=== PATIENT | female | born 1950 | race Caucasian/White ===

== ENCOUNTER 2020-05-02 08:55 | Outpatient (CLI) | payer MEDICARE, SELFPAY ==
--- NOTE | ~2020-05-02 | MM_ITS ---
EXAMINATION: MM screening [facility] BI w whitney HISTORY: Screening mammogram TECHNIQUE: Craniocaudal and mediolateral oblique 3-D tomosynthesis images were obtained and synthetic 2-D images were generated. CAD analysis was submitted and interpreted. COMPARISON: Comparison to multiple prior studies sequentially, with oldest reviewed study dated 06/2013. BREAST PARENCHYMAL COMPOSITION: The breasts are heterogeneously dense, which may obscure small masses . FINDINGS: There is a new focal asymmetry in the upper outer quadrant of the left breast. The right br east is stable without evidence for malignancy. IMPRESSION: 1. New focal left breast asymmetry, upper outer quadrant. 2. Additional mammographic views and possible breast ultrasound are recommended. BI-RADS Category 0: Incomplete: Needs additional imaging evaluation. Reviewed, dictated and finalized at location A. IMPRESSION: 1. New focal left breast asymmetry, upper outer quadrant. 2. Additional mammographic views and possible breast ultrasound are recommended . BI-RADS Category 0: Incomplete: Needs additional imaging evaluation.
--- NOTE | ~2020-05-02 | DEXA_ITS ---
Bone Density Report Name: Miladis Hadley Age: 69 Sex: Female Ethnicity: White Date of : 1950 Indication: postmenopausal; cancer; hysterectomy; Referring Provider: TOMAS, KIKE Study: Bone densitometry was performed. Exam Date: May 02, 2020 Accession number: [id number] Bone Density: Region BMD T-score Z-score Classification AP Spine (L1, L2, L3) 1.298 2.5 4.6 Normal Femoral Neck (Left) 1.070 2.0 3.8 Normal Total Hip (Left) 1.238 2.4 3.9 Normal Total Hip Bilateral Avg 1.248 2.5 4.0 Normal Femoral Neck (Right) 1.032 1.6 3.5 Normal Total Hip (Right) 1.257 2.6 4.1 Normal World Health Organization criteria for BMD impression classify patients as: Normal (T-score at or above -1.0), Osteopenia (T-score between -1.0 and -2.5), or Osteoporosis (T-score at or below -2.5). 10-year Fracture Risk: FRAX not reported because: All T-scores for Spine Total, Hip Total, Femoral Neck at or above -1.0 Previous Exams: Region Exam Age BMD T-score BMD Change BMD Change Date g/cm2 vs Baseline vs Previous AP Spine(L1, L2, L3) 05/02/2020 69 1.298 2.5 -0.074(-5.4%)# -0.105(-7.5%)* 12/14/2014 63 1.403 3.5 0.031(2.2%)# 0.031(2.2%)# 04/27/2007 56 1.372 3.2 Total Hip(Left) 05/02/2020 69 1.238 2.4 -0.087(-6.6%)# -0.056(-4.3%)* 12/14/2014 63 1.294 2.9 -0.031(-2.4%)# -0.031(-2.4%)# 04/27/2007 56 1.325 3.1 Total Hip(Right) 05/02/2020 69 1.257 2.6 -0.046(-3.5%)# -0.011(-0.8%) 12/14/2014 63 1.268 2.7 -0.035(-2.7%)# -0.035(-2.7%)# 04/27/2007 56 1.303 3.0 *Denotes significance at 95% confidence level, LSC for AP Spine = 0.022 g/cm2, LSC for Total Hip = 0.027 g/cm2 Clinical Information Provided by Patient: Has used the following medications: Vitamin D, Calcium Has the following medical conditions: Cancer, Hysterectomy Patient maximum height was 63 Menopause Age: 51 Drinks caffeinated beverages Onset of menses at age 15 Number of children 0 Impression: The patient has normal bone mass. The BMD for the AP Spine(L1, L2, L3) decreased, changing by -7.5% since the last DXA exam. The BMD for the Total Hip(Left) decreased, changing by -4.3% since the last DXA exam. Discussion: LOW RISK OF FRACTURE; BONE DENSITY IS WELL ABOVE THE MINIMUM DESIRABLE LEVEL AND ABOVE AVERAGE FOR AGE AND SEX AT ALL SKELETAL SITES TESTED. This person's bone density is above expected limits for age and sex. This is rarely clinically sign
== END 2020-05-02 08:56 | disposition home or self-care (01) ==
PROVIDERS: PCP Internal Medicine; Visit Provider Nurse Practitioner
DX: Z12.31 Encounter for screening mammogram for malignant neoplasm of breast (principal); Z78.0 Asymptomatic menopausal state; R92.8 Other abnormal and inconclusive findings on diagnostic imaging of breast
CPT/HCPCS: 77063; 77067; 77080

== ENCOUNTER 2020-06-05 11:41 | Outpatient (CLI) | payer MEDICARE, SELFPAY ==
--- NOTE | ~2020-06-05 | MMUS_ITS ---
EXAMINATION: MM diagnostic mammo unilat LT, US breast LT limited HISTORY: Follow-up left breast density TECHNIQUE: Additional 3-D tomosynthesis images of the left breast were performed and synthetic 2-D im ages were generated. CAD analysis was submitted and interpreted. High resolution left breast ultrasou nd was performed. COMPARISON: Comparison to multiple prior studies sequentially, with oldest reviewed study dated 01/2014. BREAST PARENCHYMAL COMPOSITION: Breast composed of scattered areas of fibroglandular density FINDINGS: MAMMOGRAPHIC FINDINGS: There are no suspicious masses, calcifications or architectural distortion. No evidence for malignanc y in the left breast. ULTRASOUND: Limited left breast ultrasound: There is a 5 mm cyst at 6:00, 3 cm from the nipple. No sonographic evidence for malignancy. IMPRESSION: 1. No mammographic or sonographic evidence for malignancy in the left breast. 2. Routine yearly screening mammogram and regular clinical breast examination are recommended. BI-RADS Category 2: Benign finding(s). Reviewed, dictated and finalized at location A. IMPRESSION: 1. No mammographic or sonographic evidence for malignancy in the left breast. 2. Routine yearly screening mammogram and regular clinical breast examination a re recommended. BI-RADS Category 2: Benign finding(s).
== END 2020-06-05 11:42 | disposition home or self-care (01) ==
PROVIDERS: PCP Internal Medicine; Visit Provider Obstetrics & Gynecology Gynecology
DX: R92.8 Other abnormal and inconclusive findings on diagnostic imaging of breast (principal)
CPT/HCPCS: 76642; 77065

== ENCOUNTER 2021-05-08 11:35 | Outpatient (CLI) | payer MEDICARE, SELFPAY ==
--- NOTE | ~2021-05-08 | MM_ITS ---
EXAMINATION: MM screening [facility] BI w whitney HISTORY: Screening mammogram TECHNIQUE: Craniocaudal and mediolateral oblique 3-D tomosynthesis images were obtained and synthetic 2-D images were generated. CAD analysis was submitted and interpreted. COMPARISON: 06/05/2020, 05/02/2020, 01/11/2019 BREAST PARENCHYMAL COMPOSITION: There are scattered areas of fibroglandular density. FINDINGS: There is no evidence of suspicious mass, calcification, or architectural distortion to sugg est malignancy in either breast. There has been no suspicious interval change. IMPRESSION: 1. No mammographic evidence of malignancy. 2. Recommend routine screening mammography in one year. BI-RADS Category 1: Negative Reviewed, dictated and finalized at location A.
== END 2021-05-08 11:36 | disposition home or self-care (01) ==
LOC: ANHIMG 11:36
PROVIDERS: PCP Internal Medicine; Visit Provider Nurse Practitioner
DX: Z12.31 Encounter for screening mammogram for malignant neoplasm of breast (principal)
CPT/HCPCS: 77063; 77067

== ENCOUNTER 2021-10-22 07:40 | Outpatient (CLI) | payer MEDICARE, SELFPAY ==
--- NOTE | ~2021-10-22 | CT_ITS ---
EXAMINATION: CT abdomen pelvis wo/w con DATE: 10/22/2021 08:24 INDICATION: Recurrent UTI. Renal stones. TECHNIQUE: Computed tomography (CT) of the abdomen and pelvis was performed with and without 130 cc O mnipaque 350 intravenous contrast. The dose-length product was 1020.22 mGy-cm. Automated exposure con trol and iterative reconstruction technique were employed. COMPARISON: CT dated 01/03/2015. FINDINGS: Heart size normal. No significant pleural or pericardial effusion. There is atherosclerosis of the aorta without aneurysm. No lymphadenopathy. Nonobstructive bowel gas pattern. There is a smal l soft tissue nodule in the left upper abdomen adjacent to the descending colon measuring 1 cm, likel y an accessory splenule, unchanged. There are small hyperdense cysts of the kidneys bilaterally. Ther e are multiple additional smaller subcentimeter cysts throughout both kidneys. Ureters are normal in course and caliber. There is a surgical anastomosis of the sigmoid colon. The liver, spleen, pancreas, adrenal glands are unremarkable. Gallbladder is present. Nonobstructive bowel gas pattern. No renal stones or hydronephrosis. Bladder is decompressed. Nonobstructive bowel g as pattern. No free air or free fluid. There is advanced lumbar spondylosis with grade 1 degenerative spondylolisthesis at L4-5. No focal lytic or blastic lesions are identified. There is levoscoliosis of the lumbar spine. IMPRESSION: 1. No findings to account for patient's symptoms. No renal/ureteral stones or hydronephrosis. Reviewed, dictated and finalized at location A. S MACHINE OPERATOR IMPRESSION: 1. No findings to account for patient's symptoms. No renal/ureteral stones or h ydronephrosis.
[2021-10-22 08:09] LABS: Estimated Glomerular Filt Rate > 60
== END 2021-10-22 07:41 | disposition home or self-care (01) ==
PROVIDERS: PCP Internal Medicine
DX: N39.0 Urinary tract infection, site not specified (principal); N20.0 Calculus of kidney
CPT/HCPCS: 74178; Q9967

== ENCOUNTER 2022-07-08 14:52 | Outpatient (CLI) | payer MEDICARE, SELFPAY ==
--- NOTE | ~2022-07-08 | MM_ITS ---
EXAMINATION: MM screening [facility] BI w whitney HISTORY: Screening mammogram TECHNIQUE: Craniocaudal and mediolateral oblique 3-D tomosynthesis images were obtained and synthetic 2-D images were generated. CAD analysis was submitted and interpreted. COMPARISON: No prior mammogram is available for comparison at this institution. BREAST PARENCHYMAL COMPOSITION: There are scattered areas of fibroglandular density. FINDINGS: There is no evidence of suspicious mass, calcification, or architectural distortion to sugg est malignancy in either breast. There has been no suspicious interval change. IMPRESSION: 1. No mammographic evidence of malignancy. 2. Recommend routine screening mammography in one year. BI-RADS Category 1: Negative Reviewed, dictated and finalized at location A.
== END 2022-07-08 14:53 | disposition home or self-care (01) ==
PROVIDERS: PCP Family Medicine; Visit Provider Nurse Practitioner
DX: Z12.31 Encounter for screening mammogram for malignant neoplasm of breast (principal)
CPT/HCPCS: 77063; 77067

== ENCOUNTER 2023-01-05 14:15 | Outpatient (RCR) | payer MEDICARE, SELFPAY ==
--- NOTE | 2022-12-03 08:41 | BUPTOPEVAL1 ---
Assessment and note entered by Shirley Franklin PT Evaluation Information Assessment Status Evaluation Diagnosis R knee pain Onset 3 months ago noted to have worsen pain Reported Pain Level Pain Score 0: Self Report Assessment PT Clinical Summary Pt is a 71 year old female who presents with R knee pain that is interfering with her active life style. Pt does not report significant history of a R knee injury, but reports chronic issue with L knee lateral bursitis (pt treats conservatively). Pt noted to have limited active ROM in Kyle knees. Pt's patella motion limited in Kyle knees with L being more limited than R. Pt has slight strength deficits in Kyle hips/knees. Pt noted to have a slight L hip drop with R stance phase of gait and antalgic gait pattern. Pt will benefit from skilled therapy to reduce R knee pain , to normalize gait pattern, and improve Kyle ROM/ strength to improve gait mechanics. Plan of Care Interventions Electrical Stimulation,Gait Training,Hot Pack/Cold Pack,Manual Therapy,Neuro Re-education,Patient/ Caregiver Education,Therapeutic Activities, Therapeutic Exercise,Self-Care/Home Management, Ultrasound PT Services Indicated Yes These treatments will address the objective and functional deficits as defined above. The patient will be advanced safely and appropriately in order for the patient to progress towards his/her prior level of function. Additional exercises will be introduced and as well as a comprehensive home exercise program upon discharge, if needed, ?to ensure carryover of functional gains achieved in the clinic. This treatment plan has been reviewed and agreement upon by the patient.
--- NOTE | 2022-12-08 16:30 | PCPTNOTE ---
Adding frequency and duration for evaluation performed on 12/02/22: 2x weekly x 4 weeks from evaluation.
--- NOTE | 2022-12-17 08:07 | PCPTNOTE ---
Correction of therapy note from 12/11/22. Taping was intended but was not performed.
--- NOTE | 2022-12-23 11:08 | PCPTNOTE ---
Patient called & cancelled scheduled appointment this date due to having to attend a .
--- NOTE | 2023-01-05 16:40 | PTOPDC ---
Assessment and note entered by Michaelle Vital, PT Evaluation Information Assessment Status Discharge Diagnosis R knee pain Subjective Information Reports feeling 40% better Is frustrated because with initially getting up and moving after any rest period has excructiating soreness and stiffness, takes about 10 minutes to get it worked out. Reports ice seems to relieve the best. States used to have pain even with sitting still, but this has now resolved. Reported Pain Level Pain Score 0: Self Report Assessment PT Clinical Summary Pt has attended therapy consistently for her right knee pain. She shows improvement in strength, ROM , and pain reports. However she cont to have significant levels of pain with initial movement after any length of rest. She has performed her home exercises as directed, has added appropriate shoe wear and inserts into her routines but has not been able to meet all her goals. Discussed with patient options of ortho referral for additional options including topical analgesics and steroid shots. Thus pt is being referred back to MD for further consultation. Plan of Care PT Services Indicated No
== END 2023-01-06 08:41 | disposition home or self-care (01) ==
LOC: ANHHIPT 14:15
PROVIDERS: PCP Family Medicine; Visit Provider Family Medicine
DX: M25.561 Pain in right knee (principal)
CPT/HCPCS: 97014; 97110; 97112; 97140; 97161; G0283

== ENCOUNTER 2023-07-18 11:06 | Outpatient (CLI) | payer MEDICARE, SELFPAY ==
--- NOTE | ~2023-07-18 | MM_ITS ---
EXAMINATION: MM screening [facility] BI w whitney HISTORY: Screening mammogram TECHNIQUE: Craniocaudal and mediolateral oblique 3-D tomosynthesis images were obtained and synthetic 2-D images were generated. CAD analysis was submitted and interpreted. COMPARISON: 07/08/2022, 05/08/2021 bilateral screening mammogram examinations BREAST PARENCHYMAL COMPOSITION: There are scattered areas of fibroglandular density. FINDINGS: There is no evidence of suspicious mass, calcification, or architectural distortion to sugg est malignancy in either breast. There has been no suspicious interval change. IMPRESSION: 1. No mammographic evidence of malignancy. 2. Recommend routine screening mammography in one year. BI-RADS Category 1: Negative Reviewed, dictated and finalized at location A.
== END 2023-07-18 11:07 | disposition home or self-care (01) ==
PROVIDERS: PCP Family Medicine; Visit Provider Obstetrics & Gynecology Gynecology
DX: Z12.31 Encounter for screening mammogram for malignant neoplasm of breast (principal)
CPT/HCPCS: 77063; 77067

== ENCOUNTER 2023-12-29 04:22 | Day surgery (SDC) | payer MEDICARE, SELFPAY ==
[2023-12-11 14:20] VITALS: BMI 25.7
--- NOTE | 2023-12-25 12:56 | SUR.PREOP ---
Patient called regarding upcoming procedure. Reviewed preop instructions, appointment times, and procedure prep.
--- NOTE | 2023-12-28 14:53 | PM.HPGS ---
History of Present Illness History of Present Illness Consent: Risks, benefits, and alternatives have been discussed and questions answered. Patient agrees to proceed with procedure. Chief complaint: hx colon polyps Narrative: Miladis Hadley is a 73 year old female Referred for colon cancer screening. She has a history of polyps. At the time of her last colonoscopy 6 years ago and inflammatory polyp was found. Review of Systems Review of Systems: All systems reviewed & are unremarkable except as noted in HPI and below PMFSH Past Medical History Medical History Annual physical exam Anxiety Hx of colonic polyp Hx of ovarian cancer Mixed hyperlipidemia Overactive bladder Right knee pain Screening for colon cancer Toenail fungus Vitamin D deficiency Surgical History Surgical History S/P FIONA-BSO Family History Family History Father Hypertension Family history of chronic obstructive pulmonary disease Social History Social History Smoking status: Never smoker Second hand tobacco smoke exposure: No Alcohol intake: current Drinks per week: 2 Alcohol use details: BEERS Substance use: never Substance use type: does not use Lack of Transportation: No Lack of Food: Never True Current Housing: I Have Housing Concerned About Future Housing: No Difficulty Paying Gas/Electric Bills: No Difficulty Paying for Meds: No Currently Unemployed: No Difficulty w/ Childcare or Family Care: No Living arrangements: with family Occupation/Education: retired Gender identity (if verbalized by the patient): Female Spiritual care concerns: No Agree to blood products: Yes Meds Home Medications and Allergies Home Medications Medication Instructions Recorded Confirmed Type aspirin 81 mg tablet,delayed 81 mg PO DAILY 11/25/22 12/29/23 History release (Adult Low Dose Aspirin) cinnamon bark 500 mg capsule 500 mg PO DAILY 11/25/22 12/29/23 History (Cinnamon) estradiol 0.01% (0.1 mg/gram) 1 appful vaginal DAILY 11/25/22 12/29/23 History vaginal cream lactobacillus combination no.9 4 4,000 mmu cells PO DAILY 11/25/22 12/29/23 History billion cell capsule (Adult 50 Plus Probiotic) omega 0-yyq-nlm-fish oil 1,200 mg 1 cap PO DAILY 11/25/22 12/29/23 History (144 mg-216 mg) capsule (Fish Oil) terbinafine HCl 250 mg tablet 250 mg PO DAILY #90 tabs 11/24/23 12/29/23 Rx atorvastatin 40 mg tablet See Rx Instructions .Route 12/07/23 12/29/23 Rx .COMPLEX #90 tabs metformin 500 mg tablet 500 mg PO BID #180 tabs 12/07/23 12/29/23 Rx paroxetine HCl 10 mg tablet (Paxil) 10 mg PO DAILY #90 tabs 12/21/23 12/29/23 Rx Allergies Allergy/AdvReac Type Severity Reaction Status Date / Time griseofulvin Allergy Intermediate Hives Verified 12/29/23 09:38 morphine Allergy Intermediate Rash Verified 12/29/23 09:38 Exam Resp: Auscultation: clear to auscultation bilaterally Cardio: Rate: regular rate Rhythm: regular rhythm GI: GI Palp: Yes Soft to palpation and No Tenderness to palpation present (GI) Assessment and Plan Assessment and plan (1) Screening for colon cancer: Code(s): Z12.11 - Encounter for screening for malignant neoplasm of colon Status: Acute Assessment and Plan: Colonoscopy with possible biopsy or polypectomy or cautery or injection of substances.
[2023-12-29 09:38] LABS: Glucose Point of Care 97 mg/dl (65-105)
[2023-12-29 09:40] VITALS: BP 121/66; PULSE 95; RESP 16; TEMP 36.2; O2SAT 98
[2023-12-29] MEDS: LACTATED RINGERS 1,000 ML 150 ML IV CONT (09:43)
--- NOTE | 2023-12-29 10:18 | WPDANESEPPF ---
Anes - Initial Pre Proc Eval Procedure: Operation Date: 12/29/23 11:00 Proposed Procedures p Colonoscopy - Quan Elena MD Date/Time: 12/29/23 10:18 Surgeon: Quan Elena MD Pre Op Diagnosis: hx colon polyps Patient Data Age: 73 Gender: F Height: 1.6 m Weight: 63 kg Last Vital Signs Temp 36.2 C L 12/29/23 09:40 Pulse 95 12/29/23 09:40 Resp 16 12/29/23 09:40 BP 121/66 12/29/23 09:40 Pulse Ox 98 12/29/23 09:40 O2 Del Method Room Air 12/29/23 09:40 Allergies Allergy/AdvReac Type Severity Reaction Status Date / Time griseofulvin Allergy Intermediate Hives Verified 12/29/23 09:38 morphine Allergy Intermediate Rash Verified 12/29/23 09:38 Home Medications Medication Instructions Recorded Confirmed Type aspirin 81 mg tablet,delayed 81 mg PO DAILY 11/25/22 12/29/23 History release (Adult Low Dose Aspirin) cinnamon bark 500 mg capsule 500 mg PO DAILY 11/25/22 12/29/23 History (Cinnamon) estradiol 0.01% (0.1 mg/gram) 1 appful vaginal DAILY 11/25/22 12/29/23 History vaginal cream lactobacillus combination no.9 4 4,000 mmu cells PO DAILY 11/25/22 12/29/23 History billion cell capsule (Adult 50 Plus Probiotic) omega 5-zvv-mwk-fish oil 1,200 mg 1 cap PO DAILY 11/25/22 12/29/23 History (144 mg-216 mg) capsule (Fish Oil) terbinafine HCl 250 mg tablet 250 mg PO DAILY #90 tabs 11/24/23 12/29/23 Rx atorvastatin 40 mg tablet See Rx Instructions .Route 12/07/23 12/29/23 Rx .COMPLEX #90 tabs metformin 500 mg tablet 500 mg PO BID #180 tabs 12/07/23 12/29/23 Rx paroxetine HCl 10 mg tablet (Paxil) 10 mg PO DAILY #90 tabs 12/21/23 12/29/23 Rx Laboratory Tests 12/29/23 09:35 POC Capillary Glucose 97 mg/dl (65-105) Patient hx anesthesia problems: none Family hx anesthesia problems: none Results Review: All pre-operative results and documents have been reviewed as part of the pre-operative evaluation. [facility] Past Medical History Medical History Annual physical exam Anxiety Hx of colonic polyp Hx of ovarian cancer Mixed hyperlipidemia Overactive bladder Right knee pain Screening for colon cancer Toenail fungus Vitamin D deficiency Surgical History Surgical History S/P FIONA-BSO Family History Family History Father Hypertension Family history of chronic obstructive pulmonary disease Social History Social History Smoking status: Never smoker Second hand tobacco smoke exposure: No Alcohol intake: current Drinks per week: 2 Alcohol use details: BEERS Substance use: never Substance use type: does not use Lack of Transportation: No Lack of Food: Never True Current Housing: I Have Housing Concerned About Future Housing: No Difficulty Paying Gas/Electric Bills: No Difficulty Paying for Meds: No Currently Unemployed: No Difficulty w/ Childcare or Family Care: No Living arrangements: with family Occupation/Education: retired Gender identity (if verbalized by the patient): Female Spiritual care concerns: No Agree to blood products: Yes Anes - Eval Final PreProcedure Day of Procedure 12/29/23 10:18 Patient weight: normal Heart: regular rate and rhythm Lungs: clear to auscultation Airway: Mallampati scale class II Neurological: alert and oriented Last oral intake: >/= 8 hours ASA classification: III Emergent: no Anesthetic plan: proceed Anesthesia type and monitoring: general GIVS and standard monitoring Results Review: All pre-operative results and documents have been reviewed as part of the pre-operative evaluation. Informed Consent: The patient's anesthetic plan and its attendant risks and benefits were discussed with the patient/family/POA. Questions were solicited and answer
[2023-12-29 10:51] VITALS: BP 107/64; PULSE 68; RESP 18; O2SAT 98
[2023-12-29 11:01] VITALS: BP 114/67; PULSE 60; RESP 18; O2SAT 99
[2023-12-29 11:11] VITALS: BP 119/71; PULSE 54; RESP 18; O2SAT 100
== END 2023-12-29 11:26 | disposition home or self-care (01) ==
PROVIDERS: PCP Family Medicine; Visit Provider Internal Medicine Gastroenterology
PROC: 0DJD8ZZ Inspection of Lower Intestinal Tract, Via Natural or Artificial Opening Endoscopic (ICD-10-PCS; CPT 45378; principal; 2023-12-29 11:00)
DX: Z12.11 Encounter for screening for malignant neoplasm of colon (principal); Z98.0 Intestinal bypass and anastomosis status; Z90.49 Acquired absence of other specified parts of digestive tract; Z86.010 Personal history of colon polyps; E78.2 Mixed hyperlipidemia; F41.9 Anxiety disorder, unspecified; Z79.82 Long term (current) use of aspirin; Z79.84 Long term (current) use of oral hypoglycemic drugs
CPT/HCPCS: G0105; 82948; J2704; J7120

== ENCOUNTER 2024-08-02 13:47 | Outpatient (CLI) | payer MEDICARE, SELFPAY ==
--- NOTE | ~2024-08-02 | MM_ITS ---
EXAMINATION: MM screening [facility] BI w whitney HISTORY: Screening TECHNIQUE: Craniocaudal and mediolateral oblique 3-D tomosynthesis images were obtained and synthetic 2-D images were generated. CAD analysis was submitted and interpreted. COMPARISON: Comparison to multiple prior studies sequentially, with oldest reviewed study dated 01/11. BREAST PARENCHYMAL COMPOSITION: Not dense: There are scattered areas of fibroglandular density. FINDINGS: Multiple nodular asymmetries are present in the periareolar location of the right breast. T he left breast is stable without evidence for malignancy. IMPRESSION: 1. Nodular asymmetries in the periareolar location of the right breast. 2. Additional mammographic views and possible breast ultrasound are recommended. BI-RADS Category 0: Incomplete: Needs additional imaging evaluation. Reviewed, dictated and finalized at location B. IMPRESSION: 1. Nodular asymmetries in the periareolar location of the right breast. 2. Additional mammographic views and possible breast ultrasound are recommended . BI-RADS Category 0: Incomplete: Needs additional imaging evaluation.
== END 2024-08-02 13:48 | disposition home or self-care (01) ==
PROVIDERS: PCP Nurse Practitioner Family; Visit Provider Nurse Practitioner
DX: Z12.31 Encounter for screening mammogram for malignant neoplasm of breast (principal); R92.8 Other abnormal and inconclusive findings on diagnostic imaging of breast
CPT/HCPCS: 77063; 77067

== ENCOUNTER 2024-08-29 10:36 | Outpatient (CLI) | payer MEDICARE, SELFPAY ==
--- NOTE | ~2024-08-29 | MM_ITS ---
EXAMINATION: MM diagnostic nilo RT w whitney HISTORY: Right breast asymmetry TECHNIQUE: Additional 3-D tomosynthesis images of the right breast were performed and synthetic 2-D i mages were generated. CAD analysis was submitted and interpreted. COMPARISON: 08/02/2024 BREAST PARENCHYMAL COMPOSITION:Not Dense. There are scattered areas of fibroglandular density. FINDINGS: Spot compression views demonstrate no persistent mass lesion or suspicious distortion. No s uspicious microcalcification. IMPRESSION: No mammographic evidence for malignancy. BI-RADS Category 1: Negative Reviewed, dictated and finalized at location M.
== END 2024-08-29 10:37 | disposition home or self-care (01) ==
LOC: ANHIMG 10:37
PROVIDERS: PCP Nurse Practitioner Family; Visit Provider Obstetrics & Gynecology Gynecology
DX: R92.8 Other abnormal and inconclusive findings on diagnostic imaging of breast (principal)
CPT/HCPCS: 77061; 77065; G0279

== ENCOUNTER 2025-08-07 11:27 | Outpatient (CLI) | payer MEDICARE, SELFPAY ==
--- NOTE | ~2025-08-07 | MM_ITS ---
EXAMINATION: MM screening nilo BI w whitney HISTORY: Screening TECHNIQUE: Craniocaudal and mediolateral oblique 3-D tomosynthesis images were obtained and synthetic 2-D images were generated. CAD analysis was submitted and interpreted. COMPARISON: Comparison to multiple prior studies sequentially, with oldest reviewed study dated , 05/08/2021 BREAST PARENCHYMAL COMPOSITION: There are scattered areas of fibroglandular density. FINDINGS: There is no evidence of suspicious mass, calcification, or architectural distortion to suggest malignancy in either breast. IMPRESSION: 1. No mammographic evidence of malignancy. 2. Recommend routine screening mammography in one year. BI-RADS Category 1: Negative Reviewed, dictated and finalized at location B.
--- OUTSIDE RECORDS SUMMARY | 2025-08-07 13:04 | XMS_ITS ---
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 Past Treatment and Therapy Plans THERAPY PLAN Plan Name Start Date Discontinue Date Treatment Medications Discontinue Reason Plan Provider PORT MAINTENANCE THERAPY PLAN 11/16/2012 No medications scheduled. Therapy Complete -
--- OUTSIDE RECORDS SUMMARY | 2025-08-07 13:04 | XMS_ITS | Clinical Summary ---
Author Organization [facility] Address [address] [place] [address] Care Team Providers Care Physical Security Engineer Name Role Phone Rukhsana Brand Blank VALDIVIA-SHEARING SHED WORKER Primary Care Provider Source Comments [facility],non-owned Affiliates and Associated Physician Practices is amultiple site organization consisting of ambulatory clinics and hospital sitesin [place], [place], [place] and [place]. This disclosure is being madepursuant to the Care Everywhere program and may not contain all information available regarding this patient. Last updated 18.[facility] Allergies Active Allergy Reactions Criticality Noted Date Comments grispeg [Other] Rash Medium Medications * Be aware that medications may not be up to date on this document. Alwaysverify current medications with the patient. Probiotic Product (PROBIOTIC FORMULA PO) Take 1 tablet by mouth once daily Active Multiple Vitamins-Minera ls (CENTRUM SILVER PO) Take 1 tablet by mouth once daily Active B Complex-Biotin- FA (B-50 COMPLEX PO) Take 1 tablet by mouth once daily Active FIBER PO Take 1 capsule by mouth once daily Active aspirin 81 MG tablet Take 1 (one) tablet by mouth 2 times daily Active Owings-3 Fatty Acids (FISH OIL PO) Take 3 capsules by mouth once daily Active metFORMIN (GLUCOPHAGE) 500 MG tablet Take 1 (one) tablet by mouth 2 times daily with morning and evening meal 4 Active atorvastatin (LIPITOR) 40 MG tablet Take 1 (one) tablet by mouth once daily 7 Active PARoxetine (Paxil) 10 MG tablet Take 1 (one) tablet by mouth once daily 4 Active estradiol (Estrace) 0.1 MG/GM vaginal creamIndication s:Recurrent UTI,Vaginal atrophy INSERT ONE GRAM VAGINALLY TWICE WEEKLY 42.5 g 11 5 Active Active Problems Problem Noted Date Diagnosed Date Ovarian cancer 11/16/2012 Encounters Date Type Department Care Team Description 05/24/2025 Results Follow-Up [facility] [address] [facility] [address] [place] [phone] Garrick Stafford MD 05/22/2025 Orders Only [facility] [address], [facility] [address] [place] [address] Garrick Stafford MD Acute cystitis without hematuria from Last 3 Months Immunizations Immunization Administration Dates Next Due INFLUENZA VACCINE 08/07/2018,08/07/2014,08/10/20 13 INFLUENZA VACCINE, HIGH-DOSE , QUADR. (FLUZONE HIGH-DOSE QUADRIVALENT; 65Y+), 0.7 ML (HD-IIV4) 07/30/2021,08/07/2020 PNEUMOCOCCAL PPV VACCINE 03/18/2022 Pneumococcal Pcv13 Conj 03/31/2018 VARICELLA 09/07/2018 ZOSTER VACCINE, LIVE 03/21/2014 Zoster Hzv Vacc Recombinant Inj Im 09/07/2018, Family History Medical History Relation Name Comments Diabetes Father Heart Surgery Father Hypertension Father Hypercholesterolemia Mother Ulcerative Colitis Mother Cancer Sister multiple myelom a Relation Name Status Comments Father Mother Sister Social History Tobacco Use Types Packs/Day Years Used Date Smoking Tobacco: Never Smokeless Tobacco: Never Tobacco Cessation:Counseling Given: Not Answered Alcohol Use Standard Drinks/Week Comments Yes 0.8 (1 standard drink = 0.6 oz p ure alcohol) 2 beers per week AUDIT-C Answer Date Recorded Q1: How often do you have a drink containing alc ohol? 2-4 times a month 04/30/2020 Q2: How many drinks containi ng alcohol do you have on a typical day when you are drinking? 1 or 2 04/30/2020 Q3: How often do you have si x or more drinks on one occasion? Never 04/30/2020 PHQ-2 Answer Date Recorded Patient Health Questionnaire-2 Score 1 03/29/2025 Comments No Sex and Gender Information Value Date Recorded Sex Assigned at Not on file Legal Sex Female 3:28 PM SOFTWARE DEVELOPER CONSULTANT Gender Identity Not on file Sexual Orientation Not on file Last Filed Vital Signs Vital Sign Reading Time Taken Comments Blood Pressure 126/70 04/05/2025 10:43 AM CDT Pulse 80 04/30/2020 10:33 AM CDT Temperature 35.9 C (96.7 F) 10/06/2022 10:52 AM SOFTWARE DEVELOPER CONSULTANT Respiratory Rate 16 11/21/2013 4:48 PM SOFTWARE DEVELOPER CONSULTANT Oxygen Saturation 100% 11/21/2013 5:26 PM SOFTWARE DEVELOPER CONSULTANT Inhaled Oxygen Concentration - - Weight 63.7 kg (140 lb 6.4 oz) 04/05/2025 10:43 AM CDT Height 160 cm (5' 3) 04/05/2025 10:43 AM CDT Body Mass Index 24.87 04/05/2025 10:43 AM CDT Plan of Treatment Upcoming Encounters Date Type Department Care Team (Late st Contact Info) Description 04/11/2026 11:30 AM CDT Office Visit [facility] [address] [place] [address] Tone Isidro MD [address] [facility] [address] [place] [address] Health Maintenance Due Date Last Done Comments BONE DENSITY TESTING 1950 COLOGUARD (AGES 45-75) - COLON CA SCREENING 1950 COLON MONITORING 1950 COLONOSCOPY - COLON CA SCREENING 1950 CT COLONOGRAPHY - COLON CA SCREENING 1950 Colorectal Cancer Screening 1950 FIT - COLON CA SCREENING 1950 FLEX SIG - COLON CA SCREENING 1950 HEPATITIS C SCREENING 12/21/1967 DTAP/TDAP/TD VACCINES (1 - Tdap) 1968 MAMMOGRAM 11/04/2019 11/04/2017 (Done Outside Per Report) MEDICARE AWV CALENDAR YEAR 2024 Respiratory Syncytial Virus (RSV) Vaccine Pt: or over 60 yrs (1 - 1-dose 75+ series) 2024 COVID-19 VACCINE ( - 2024- season) 2025 03/18/2022, 08/27/2021, 01/02/2021, Additional history exists INFLUENZA VACCINE (#1) 2025 , 08/07/2020, 08/07/2018, Additional history exists ZOSTER VACCINE Completed 09/07/2018, 03/04, 03/21/2014 PNEUMOCOCCAL VACCINE 50+ Completed 03/18/2022, 03/04 DEPRESSION SCREENING Completed 04/05/2025, 04/20/20 HEPATITIS B VACCINE Aged Out No longe r eligible based on patient's age to complete this topic HIB VACCINE Aged Out No longer eligi ble based on patient's age to complete this topic HPV VACCINE Aged Out No longer eligi ble based on patient's age to complete this topic MENINGOCOCCAL (Group B) VACCINE SHARED DECISION-MAKING Aged Out No longer eligible based on patient's age to complete this topic MENINGOCOCCAL GROUPS A/C/Y/W VACCINE Aged Out No longer eligible based on patient's age to complete this topic Medical Devices Implanted Type Area Administrative Sales Assistant Device Identifier Shelf Expiration Date Model / Serial / Lot Power Port Implanted:Qty: 1 on 11/08/2012 by Quinn Tompkins MD at [facility] Left: Neck 08/31/2014 [id number] / / Procedures Procedure Name Priority Date/Time Associated Diagnosis Comments CULTURE URINE Routine 05/22/2025 12:01 PM CDT Acute cystitis without hematuria from Last 3 Months Results * (ABNORMAL) CULTURE URINE (05/22/2025 12:01 PM CDT) Culture (A) [facility] Comment: CULTURE, URINE, ROUTINE Micro Number: [id number] Test Status: Final Specimen Source: Urine, clean catch Specimen Quality: Adequate Result: Greater than 100,000 CFU/mL of Escherichia coli E.coli INT GOMEZ AMOX/CLAVULANATE S <=2 AMP/SULBACTAM S <=2 CEFAZOLIN NR <=1 2 CEFEPIME S <=0.12 CEFTAZIDIME S <=0.5 CEFTRIAXONE S <=0.25 CIPROFLOXACIN S <=0.06 GENTAMICIN S <=1 IMIPENEM S <=0.25 LEVOFLOXACIN S <=0.12 MEROPENEM S <=0.25 NITROFURANTOIN S <=16 PIP/TAZOBACTAM S <=4 TRIMETHOPRIM/SULFA S <=20 S = Susceptible I = Intermediate R = Resistant NS = Not susceptible SDD = Susceptible Dose Dependent * = Not Tested NR = Not Reported NN = See Therapy Comments THERAPY COMMENTS Note 1: For infections other than uncomplicated UTI caused by E. coli, K. pneumoniae or P. mirabilis: Cefazolin is resistant if GOMEZ > or = 8 mcg/mL. (Distinguishing susceptible versus intermediate for isolates with GOMEZ < or = 4 mcg/mL requires additional testing.) Note 2: For uncomplicated UTI caused by E. coli, K. pneumoniae or P. mirabilis: Cefazolin is susceptible if GOMEZ <32 mcg/mL and predicts susceptible to the oral agents cefaclor, cefdinir, cefpodoxime, cefprozil, cefuroxime, cephalexin and loracarbef. Test Performed at: [facility] [address] KATHLEEN KAPLAN MD Urine URINE SPECIMEN OBTAINED BY CLEAN CATCH PROCEDURE / Unknown 05/22/2025 12:01 PM CDT 05/22/2025 12:02 PM CDT us Garrick Stafford MD LAB - MICROBIOLOGY ORDER BINH Final Result [address] [address] from Last 3 Months Insurance [facility] MANAGED MEDICARE ADV AETNA MEDICARE ADV Advance Directives Documents on File Type Date Recorded Patient Wood Cabinet Finisher Expl anation Adv Directive/Living Will/POA 10/29/2012 11:02 AM * FULL RESUSCITATION (Latest Code Status on File) Date Activated Date Inactivated Comments 10/19/2012 10:16 PM 10/25/2012 3:56 PM * FULL RESUSCITATION Date Activated Date Inactivated Comments 10/15/2012 8:07 PM 10/19/2012 10:16 PM Care Teams Physical Security Engineer Relationship Specialty Start Date End Date Rukhsana Brand, ACCOUNT RECEIVABLE ASSOCIATE-SHEARING SHED WORKER [address] [place] [phone] PCP - General Nurse Practitioner Family 01/02/25
== END 2025-08-07 11:28 | disposition home or self-care (01) ==
LOC: CHSIMG 11:30
PROVIDERS: PCP Nurse Practitioner Family; Visit Provider Obstetrics & Gynecology Gynecology
DX: Z12.31 Encounter for screening mammogram for malignant neoplasm of breast (principal)
CPT/HCPCS: 77063; 77067

== ENCOUNTER 2025-10-24 08:50 | Outpatient (CLI) | payer MEDICARE, SELFPAY ==
--- NOTE | ~2025-10-24 | DEXA_ITS ---
Bone Density Report Name: JAMES BLANCAS Age: 74 Sex: Female Ethnicity: White Date of : 1950 Indication: postmenopausal; screening for osteoporosis; height loss; cancer; hysterectomy; Referring Provider: YUMIKO WOODS Study: Bone densitometry was performed. Exam Date: October 24, 2025 Accession number: [id number] Bone Density: Region BMD T-score Z-score Classification AP Spine(L2, L3, L4) 1.484 3.7 6.2 Normal Femoral Neck (Left) 1.055 1.9 4.0 Normal Total Hip (Left) 1.225 2.3 4.1 Normal Femoral Neck (Right) 1.042 1.7 3.9 Normal Total Hip (Right) 1.219 2.3 4.1 Normal Total Hip Mean 1.222 2.3 4.1 Normal World Health Organization criteria for BMD impression classify patients as: Normal (T-score at or above -1.0), Osteopenia (T-score between -1.0 and -2.5), or Osteoporosis (T-score at or below -2.5). 10-year Fracture Risk: FRAX not reported because: All T-scores for Spine Total, Hip Total, Femoral Neck at or above -1.0 Previous Exams: Region Exam Age BMD T-score BMD Change BMD Change Date g/cm2 vs Baseline vs Previous Total Hip(Left) 10/24/2025 74 1.225 2.3 -0.069 (-5.3%) -0.013 (-1.0%) 05/02/2020 69 1.238 2.4 -0.056 (-4.3%) -0.056 (-4.3%) 12/14/2014 63 1.294 2.9 Total Hip(Right) 10/24/2025 74 1.219 2.3 -0.049 (-3.9%) -0.038 (-3.0%) 05/02/2020 69 1.257 2.6 -0.011 (-0.8%) -0.011 (-0.8%) 12/14/2014 63 1.268 2.7 *Denotes significance at 95% confidence level, LSC for Total Hip = 0.027 g/cm2 Clinical Information Provided by Patient: Has used the following medications: Vitamin D, Calcium Has the following medical conditions: Cancer, Hysterectomy Patient maximum height was 63 Drinks caffeinated beverages Onset of menses at age 14 Number of children 0 Impression: The patient has normal bone mass. The BMD for the Total Hip(Right) decreased, changing by -3.0% since the last DXA exam. Discussion: LOW RISK OF FRACTURE; BONE DENSITY IS WELL ABOVE THE MINIMUM DESIRABLE LEVEL AND ABOVE AVERAGE FOR AGE AND SEX AT ALL SKELETAL SITES TESTED. This person's bone density is above expected limits for age and sex. This is rarely clinically significant, but should be pursued if there are significant musculoskeletal complaints. The patient should follow a healthful lifestyle (good nutrition with adequate calcium and vitamin D, and appropriate weight-bearing exercise). Follow-Up: Consider repeating this study in 3 to 4 years to reassess this patient's status, or sooner if there is some new clinical indication. Reported by: LONI on 10/24/2025 9:35:00 AM. Reviewed, dictated and finalized at location A.
--- OUTSIDE RECORDS SUMMARY | 2025-10-24 09:02 | XMS_ITS | Clinical Summary ---
Author Organization [facility] Address [address] [place] [address] Care Team Providers Care Scientific Informatics Project Leader Name Role Phone Rukhsana Brand Blank VALDIVIA-DRIER TAKE OFF TENDER Primary Care Provider Source Comments [facility],non-owned Affiliates and Associated Physician Practices is amultiple site organization consisting of ambulatory clinics and hospital sitesin [place], [place], [place] and [place]. This disclosure is being madepursuant to the Care Everywhere program and may not contain all information available regarding this patient. Last updated 18.[facility] Allergies Active Allergy Reactions Criticality Noted Date [...] tablet by mouth 2 times daily Active Luana-3 Fatty Acids (FISH OIL PO) Take 3 [...] TWICE WEEKLY 42.5 g 11 5 Active clobetasol (Temovate) 0.05 % cream Apply to affected area 2 times daily 5 Active sulfamethoxazol e-trimethoprim (Bactrim DS; Septra DS) 800-160 MG tabletIndicatio ns:Acute cystitis without hematuria Take 1 (one) tablet by mouth 2 times daily for 7 days 14 tablet 5 09/29/20 25 Active Problems Problem Noted Date Diagnosed Date Ovarian cancer 11/16/2012 Encounters Date Type Department Care Team Description 08/17/2025 Results Follow-Up [facility] [address], [facility] [address] [place] [address] Garrick Stafford MD 08/09/2025 Orders Only [facility] [address], [facility] [address] [place] [address] Garrick Stafford MD Acute cystitis without hematuria [...] on file Legal Sex Female 3:28 PM TELEPRINTER INSTALLER Gender Identity Not on file Sexual Orientation Not on file Last Filed Vital Signs Vital Sign Reading Time Taken Comments Blood Pressure 126/70 04/05/2025 10:43 AM CDT Pulse 80 04/30/2020 10:33 AM CDT Temperature 35.9 C (96.7 F) 10/06/2022 10:52 AM TELEPRINTER INSTALLER Respiratory Rate 16 11/21/2013 4:48 PM TELEPRINTER INSTALLER Oxygen Saturation 100% 11/21/2013 5:26 PM TELEPRINTER INSTALLER Inhaled Oxygen Concentration - - Weight 63.7 kg (140 lb 6.4 oz) 04/05/2025 10:43 AM CDT Height 160 cm (5' 3) 04/05/2025 10:43 AM CDT Body Mass Index 24.87 04/05/2025 10:43 AM CDT Plan of Treatment Upcoming Encounters Date Type Department Care Team (Late st Contact Info) Description 04/11/2026 11:30 AM CDT Office Visit [facility] [address] [facility] [address] [place] [address] Tone Isidro MD [address] [facility] [address] [place] [address] Health Maintenance Due Date Last Done Comments [...] - 1-dose 75+ series) 2024 COVID-19 VACCINE (2024- season) 2025 03/18/2022, 08/27/2021, 01/02/2021, Additional history exists INFLUENZA VACCINE (#1) 2025 , 08/07/2020, 08/07/2018, Additional history exists ZOSTER VACCINE Completed 09/07/2018, 03/04, 03/21/2014 PNEUMOCOCCAL VACCINE 50+ Completed 03/18/2022, 03/04 DEPRESSION SCREENING Completed 04/05/2025, 04/20/20 24 HEPATITIS B VACCINE Aged Out No longe [...] this topic Medical Devices Implanted Type Area Lathe Operator Contact Lens Device Identifier Shelf Expiration Date Model / Serial / Lot Power Port Implanted:Qty: 1 on 11/08/2012 by Quinn Tompkins MD at [facility] Left: Neck 08/31/2014 [id number] / / Procedures Procedure Name Priority Date/Time Associated Diagnosis Comments CULTURE URINE Routine 08/11/2025 9:53 AM CDT Acute cystitis without hematuria from Last 3 Months Results * (ABNORMAL) CULTURE URINE (08/11/2025 9:53 AM CDT) Culture (A) [facility] Comment: CULTURE, URINE, ROUTINE Micro Number: [id number] Test Status: Final Specimen Source: Urine, clean catch Specimen Quality: Adequate Result: Greater than 100,000 CFU/mL of Klebsiella pneumoniae K.pneumoniae INT GOMEZ AMOX/CLAVULANATE S <=2 AMP/SULBACTAM S 4 CEFAZOLIN NR 2 2 CEFEPIME S <=0.12 CEFTAZIDIME S <=0.5 CEFTRIAXONE S <=0.25 CIPROFLOXACIN S <=0.06 GENTAMICIN S <=1 IMIPENEM S <=0.25 LEVOFLOXACIN S <=0.12 MEROPENEM S <=0.25 NITROFURANTOIN R 128 PIP/TAZOBACTAM S <=4 TRIMETHOPRIM/SULFA S <=20 S [...] cefuroxime, cephalexin and loracarbef. Test Performed at: [id number] [address] KATHLEEN KAPLAN MD Urine URINE SPECIMEN OBTAINED BY CLEAN CATCH PROCEDURE / Unknown 08/11/2025 9:53 AM CDT 08/11/2025 9:53 AM CDT us Garrick Stafford MD LAB - MICROBIOLOGY ORDER BINH Final Result [facility] [address] [place] [address] [place] [address] from Last 3 Months Insurance [facility] MANAGED MEDICARE ADV FORMERLY [facility], [facility] MEDICARE ADV Advance Directives Documents on File Type Date Recorded Patient Aerospace Engineer Expl anation Adv Directive/Living Will/POA 10/29/2012 11:02 AM * FULL RESUSCITATION (Latest Code Status on File) Date Activated Date Inactivated Comments 10/19/2012 10:16 PM 10/25/2012 3:56 PM * FULL RESUSCITATION Date Activated Date Inactivated Comments 10/15/2012 8:07 PM 10/19/2012 10:16 PM Care Teams Scientific Informatics Project Leader Relationship Specialty Start Date End Date Rukhsana Brand APRN-RAND [address] [place] [phone] PCP - General Nurse Practitioner Family 01/02/25
--- OUTSIDE RECORDS SUMMARY | 2025-10-24 09:02 | XMS_ITS ---
Author Organization [facility] Address [address] [place] [address] Care Team Providers Care Service Desk Agent Name Role Phone Rukhsana Brand AUTOMATIC SPOOLER OPERATOR-SPEECH AND DRAMA TEACHER Primary Care Provider Active Problems Problem Noted Date Diagnosed Date Ovarian cancer 11/16/2012 Current Treatment and Therapy Plans No current plan information found. Past Treatment and Therapy Plans THERAPY PLAN Plan Name Start Date Discontinue Date Treatment Medications Discontinue Reason Plan Provider PORT MAINTENANCE THERAPY PLAN 11/16/2012 No medications scheduled. Therapy Complete -
== END 2025-10-24 08:51 | disposition home or self-care (01) ==
PROVIDERS: PCP Nurse Practitioner Family; Visit Provider Nurse Practitioner Family
DX: Z78.0 Asymptomatic menopausal state (principal)
CPT/HCPCS: 77080